=== PATIENT | male | born 1950 | race Two or more races ===

== ENCOUNTER 2020-07-08 19:14 | Emergency (ER) | payer SELFPAY ==
[~2020-07-08] VITALS: Ht 162.6 cm; Wt 63.6 kg
--- NOTE | 2020-07-08 23:32 | PHYS DOC ---
Past Medical History Past Medical History: No Pertinent History Past Surgical History: No Surgical History Smoking Status: Never Smoker Alcohol Use: None General Adult EDM: Chief Complaint: ABDOMINAL PAIN HPI: HPI: Patient is a 70 year old male with no diagnosed past medical history presents emergency department for abdominal pain. Patient is accompanied with his son-in-law. He has had abdominal pain for 3 days. Located in lower abdomen. Is been constant. Patient has had difficulty with urination. He reports only small amounts come out when he tries to urinate. It is slightly painful. No blood in his urine. He had an episode of vomiting today. No diarrhea constipation chest pain shortness of breath or fevers. Patient reports he has had some urinary issues over the past several months but this has been worse. Has never had any abdominal surgeries. Patient is not a smoker. Denies drugs or alcohol. Review of Systems: Review of Systems: Review of Systems: Constitutional: Denies fever or chills Eyes: Denies redness or eye pain HENT: Denies nasal congestion or sore throat Respiratory: Denies cough or shortness of breath Cardiovascular: Denies chest pain or palpitations GI: denies or diarrhea : Denies dysuria or hematuria Musculoskeletal: Denies back pain or joint pain Integument: Denies rash or skin lesions Neurologic: Denies headache, focal weakness or sensory changes Heart Score: C/O Chest Pain: No Allergies: Allergies: Allergies Coded Allergies Type Severity Reaction Last Updated Verified No Known Drug Allergies 07/08/20 No Physical Exam: PE: *GENERAL APPEARANCE: Awake and alert. Cooperative. No acute distress. Non toxic appearing. HEAD: Normocephalic. Atraumatic. EYES: EOM's grossly intact. Sclera anicteric. Conjunctiva clear ENT:. Airway patent. Mucous membranes moist. No trismus. Tolerating secretions. NECK: Supple. Trachea midline. HEART: Regular rate and rhythm. Radial pulses 2+. Good capillary refill. LUNGS: Respirations unlabored. Clear to auscultation bilaterally. No rales, rhonchi, wheezing or retractions. ABDOMEN: Soft. Diffuse abdominal tenderness and distention. No guarding or rebound. No CVA tenderness. No palpable or pulsatile mass. EXTREMITIES: No acute deformities. No edema, erythema or calf tenderness. SKIN: Warm and dry. No rash. NEUROLOGICAL: Alert and oriented x3. No gross neurological deficits. Moves all 4 extremities spontaneously. PSYCHIATRIC: Normal mood. Current Patient Data: Vital Signs: Vital Signs Date Time Temp Pulse Resp B/P (MAP) Pulse Ox O2 Delivery O2 Flow Rate FiO2 07/08/20 22:28 85 20 139/90 (106) 95 Room Air EKG: EKG: [] Radiology/Procedures: Radiology/Procedures: []PATIENT: CURTIS CALEROOUNT: [id number]#: [id number] : 1950 LOCATION: ER AGE: 70 SEX: M EXAM STATUS: REG ER ORD. PHYSICIAN: LIDIA ROBERTSON DO REASON: abd pain PROCEDURE: CT ABDOMEN PELVIS WO CONTRAST CT abdomen and pelvis without contrast: Reason for examination: Abdominal pain. Helical images were obtained through the abdomen pelvis with no intravenous or oral contrast administered. Reconstruction was performed in sagittal and coronal planes. Exposure: One or more of the following individualized dose reduction techniques were utilized for this examination: 1. Automated exposure control 2. Adjustment of the mA and/or kV according to patient size 3. Use of iterative reconstruction technique. The lung bases are clear. The heart size is normal with no pericardial effusion. The liver shows a small hypodense lesion in the left lobe measuring approximately 1.2 cm in size. Gallbladder shows no cholelithiasis. No abnormality seen at the spleen, adrenal glands or pancreas. The abdominal aorta and inferior vena cava show no acute abnormalities. No abnormality seen at the appendix. The colon shows no diverticulosis, diverticulitis or colitis. The small intestinal tract shows no abnormal dilatation, wall thickening or apparent obstruction. The kidneys show no renal masses, renal calculi hydronephrosis or evidence of obstructive uropathy. The bladder contains a Shahid catheter and is decompressed but appears to be distended enlarged with a somewhat flaccid appearance. This may indicate chronic distention. There appears to be some free fluid and mesenteric haziness in the pelvis. Prostate gland is enlarged at 6.5 cm with calcification. Fat-containing inguinal hernias are present bilaterally, right greater than left. There are degenerative changes at the L5-S1 disc level but no acute bony abnormalities are seen. IMPRESSION: 1.2 cm hypodense lesion in the liver. This could represent a small cyst or hemangioma but recommend clinical correlation and follow-up. Shahid catheter is present within the bladder and the bladder is decompressed but appears 2 be enlarged and somewhat flaccid in appearance suggesting chronic distention. Small amount of fluid in the lower abdomen with haziness in the pelvic mesentery suggesting some inflammatory changes. Enlarged prostate gland at 6.5 cm. Bilateral fat-containing inguinal hernia. Electronically signed by: Lucinda Mohan MD (07/09/2020 1:50 AM) [facility] DICTATED and SIGNED BY: LUCINDA MOHAN MD DATE: 07/09/20 [id number] 0 Course & Med Decision Making: Course & Med Decision Making Medical decision making: This is a 70-year-old male presents with abdominal pain and urinary retention. Here in the emergency department patient's vital signs are stable. He is accompanied by his son-in-law is bedside and is translating. In the emergency department patient's vital signs are stable. Laboratory evaluation shows no leukocytosis. Chemistry shows sodium of 120. CO2 of 20. Creatinine of 6. BUN of 52. Calcium 7.5. Urine shows blood. CT abdomen pelvis shows liver lesion. Shahid catheter with decompressed bladder. Enlarged possible from chronic distention. Small amount of fluid in the lower abdomen in the pelvic mesentery suggesting inflammatory changes. Enlarged prostate. Bilateral inguinal hernias. Shahid catheter was placed upon arrival to the emergency department with 1000 mL initially out. At this point patient will need admission and urology evaluation. As well as nephrology. I spoke to the patient's son-in-law. He is agreeable to transfer to [facility]. 0220: Initiated transfer to [facility]. 0245: Patient accepted by Dr. Hay at [facility]. Will initiate transport. Recommended LR started at 75 mL's per hour. At this point I notified patient and son-in-law. They are agreeable to transport. They are aware of all labs and imaging. All questions answered and patient is stable to time of transport. Dragon Disclaimer: Dragon Disclaimer: This electronic medical record was generated, in whole or in part, using a voice recognition dictation system. Departure Departure Impression: Primary Impression: Acute renal failure Additional Impressions: Hyponatremia Enlarged prostate Liver lesion Hematuria Urinary retention Bilateral inguinal hernia Disposition: 05 DC/TRF OTHER TYPE INSTITUTI (Accepted by Dr. Hay at 0245 [facility]. 7 patient stable for transport.) Condition: STABLE Referrals: NO PCP (PCP) Critical Care Time Critical care time was50 minutes exclusive of procedures. LIDIA ROBERTSON DO Jul 08, 2020 23:32
[2020-07-08 23:52] LABS: BILIRUBIN,URINE NEGATIVE (NEG); CLARITY,URINE CLEAR; COLOR,URINE YELLOW; NITRITE,URINE NEGATIVE (NEG); PROTEIN,URINE NEGATIVE (NEG-TRACE); UROBILINOGEN,URINE 0.2 mg/dL (0.2 mg/dL)
[2020-07-08 23:57] LABS: BACTERIA,URINE 0 /HPF (0-FEW); RBC,URINE 20-40 /HPF (0-2)
[2020-07-09 00:08] LABS: BASO % 0 % (0-3); EOS # 0.1 x10^3/uL (0.0-0.7); EOS % 1 % (0-3); HEMATOCRIT 42.3 % (39.0-53.0); HEMOGLOBIN 14.6 g/dL (13.0-17.5); LYMPH # 0.9 x10^3/uL (1.0-4.8); LYMPH % 9 % (24-48); MEAN CORPUSCULAR HEMOGLOBIN 30 pg (25-35); MEAN CORPUSCULAR HGB CONC 35 g/dL (31-37); MEAN CORPUSCULAR VOLUME 86 fL (79-100); MONO # 0.8 x10^3/uL (0.0-1.1); MONO % 9 % (0-9); NEUT # 7.9 x10^3/uL (1.8-7.7); NEUT % 81 % (31-73); PLATELET COUNT 213 x10^3/uL (140-400); RED BLOOD COUNT 4.95 x10^6/uL (4.30-5.70); RED CELL DISTRIBUTION WIDTH 14.2 % (11.5-14.5); WHITE BLOOD COUNT 9.8 x10^3/uL (4.0-11.0)
[2020-07-09 00:24] LABS: ALBUMIN 3.1 g/dL (3.4-5.0); ALBUMIN/GLOBULIN RATIO 0.8 (1.0-1.7); CALCIUM 7.5 mg/dL (8.5-10.1); GFR 9.4; POTASSIUM 4.2 mmol/L (3.5-5.1); TOTAL BILIRUBIN 0.8 mg/dL (0.2-1.0); TOTAL PROTEIN 6.9 g/dL (6.4-8.2)
--- NOTE | 2020-07-09 01:52 | RAD ---
CT abdomen and pelvis without contrast: Reason for examination: Abdominal pain. Helical images were obtained through the abdomen pelvis with no intravenous or oral contrast administ ered. Reconstruction was performed in sagittal and coronal planes. Exposure: One or more of the following individualized dose reduction techniques were utilized for thi s examination: 1. Automated exposure control 2. Adjustment of the mA and/or kV according to patient size 3. Use of iterative reconstruction technique. The lung bases are clear. The heart size is normal with no pericardial effusion. The liver shows a small hypodense lesion in the left lobe measuring approximately 1.2 cm in size. Gal lbladder shows no cholelithiasis. No abnormality seen at the spleen, adrenal glands or pancreas. The abdominal aorta and inferior vena cava show no acute abnormalities. No abnormality seen at the append ix. The colon shows no diverticulosis, diverticulitis or colitis. The small intestinal tract shows no abnormal dilatation, wall thickening or apparent obstruction. The kidneys show no renal masses, milvia l calculi hydronephrosis or evidence of obstructive uropathy. The bladder contains a Shahid catheter and is decompressed but appears to be distended enlarged with a somewhat flaccid appearance. This may indicate chronic distention. There appears to be some free flu id and mesenteric haziness in the pelvis. Prostate gland is enlarged at 6.5 cm with calcification. Fa t-containing inguinal hernias are present bilaterally, right greater than left. There are degenerativ e changes at the L5-S1 disc level but no acute bony abnormalities are seen. IMPRESSION: 1.2 cm hypodense lesion in the liver. This could represent a small cyst or hemangioma but recommend c linical correlation and follow-up. Shahid catheter is present within the bladder and the bladder is decompressed but appears 2 be enlarge d and somewhat flaccid in appearance suggesting chronic distention. Small amount of fluid in the lower abdomen with haziness in the pelvic mesentery suggesting some infl ammatory changes. Enlarged prostate gland at 6.5 cm. Bilateral fat-containing inguinal hernia. Electronically signed by: Lucinda Lira MD (07/09/2020 1:50 AM) [facility]
[2020-07-09] MEDS ORDERED: IV RINGERS,LACTATED 1000ML 1,000 ML IV ONE (03:00)
[2020-07-09 03:10] VITALS: BP 112/66
[2020-07-09] MEDS ORDERED: ONDANSETRON PF 4 MG/2 ML VIAL. IV PRN (03:15)
== END 2020-07-09 03:50 | disposition short-term general hospital (02) ==
LOC: ER 19:14
DX: N17.9 Acute kidney failure, unspecified (principal); E87.1 Hypo-osmolality and hyponatremia; N40.0 Benign prostatic hyperplasia without lower urinary tract symptoms; K76.9 Liver disease, unspecified; R31.9 Hematuria, unspecified; R33.9 Retention of urine, unspecified; K40.20 Bilateral inguinal hernia, without obstruction or gangrene, not specified as recurrent
CPT/HCPCS: 36415; 51702; 74176; 80053; 81001; 83690; 85025; 87086; 99291; J7120; 96360; 96361; 99285-25